=== PATIENT | female | born 1990 | race African-American/Black ===

== ENCOUNTER 2017-01-27 17:12 | Emergency (ER) | payer OTHER ==
[~2017-01-27] VITALS: Ht 165.1 cm; Wt 63.6 kg
[2017-01-27 19:05] VITALS: BP 119/66
== END 2017-01-27 19:31 | disposition home or self-care (01) ==
LOC: EMS 17:14
DX: Z02.89 Encounter for other administrative examinations (principal); M41.9 Scoliosis, unspecified; M54.9 Dorsalgia, unspecified; G89.29 Other chronic pain; F17.200 Nicotine dependence, unspecified, uncomplicated; V47.5XXA Car driver injured in collision with fixed or stationary object in traffic accident, initial encounter; Y93.02 Activity, running; Y92.89 Other specified places as the place of occurrence of the external cause; Y99.8 Other external cause status
CPT/HCPCS: 72040; 81025; 99284